=== PATIENT | female | born 1985 | race Caucasian/White ===

== ENCOUNTER 2019-07-28 17:35 | Emergency (ER) | payer OTHER, SELFPAY ==
[2019-07-28 17:36] VITALS: BP 115/71; PULSE 81; RESP 16; TEMP 37.3; O2SAT 99; BMI 27.6
--- NOTE | 2019-07-28 17:44 | US_ITS ---
STUDY: ABDOMINAL ULTRASOUND - RIGHT UPPER QUADRANT REASON FOR VISIT: Female, 33 years old RUQ PAIN- X 2 DAYS WORSE AFTER EATING TECHNIQUE: Ultrasound evaluation of the right upper quadrant was performed with real-time and static suazo-scale imaging. TECHNICAL QUALITY: Adequate. COMPARISON: 03/15/2012 FINDINGS: Pancreas: Visualized portions of pancreas are unremarkable. Liver: Measures 14.5 cm. Liver shows normal echogenicity. No masses identified. Gallbladder: Contracted. Negative sonographic Helm''s sign. Common bile duct: Measures 4 mm. No intraductal stones identified. Right kidney: Measures 11.6 cm in length. Normal contour. No cysts. No masses, stones, or hydronephrosis identified. Renal cortical thickness appears normal. Additional findings: None. US/Gallbladder IMPRESSION: Contracted gallbladder. Right upper quadrant abdominal ultrasound is within normal limits. Electronically Signed: Narendra Galvan, at 19:16 EST Tel , Service support ,
--- NOTE | 2019-07-28 17:48 | ED.VIS.GEN ---
History of Present Illness Chief Complaint: Abd Pain Informant: Patient Onset: Days Context: Gradual Onset Timing: Intermittent Current Severity: Moderate Maximum Severity: Moderate Narrative: The patient presents to the emergency department abdominal pain. She states that over the past few days, she has been having sharp pain in her midepigastric area that radiates to her right upper quadrant. It is worse with eating. She states that she gets nauseated but has had no vomiting. She does feel like she has had low-grade fever. The patient has had prior history of , but no other abdominal surgery. She does not recall any difference with different foods. She states that almost everything she eats to give her pain. She is otherwise been in her normal state of health. Prior similar symptoms: No Recent Illness/Hospitalization: No Past Medical History - Allergies and Home Meds Allergies/Adverse Reactions: Allergies amoxicillin Allergy (Verified 07/28/19 17:36) Rash Primary Care Physician: Elsy Crooks NP-C [Primary Care Provider] - Prior records reviewed: Yes Past Medical History: None Surgical History: - - Review of Systems General: Denies: Chills, Fever, Sweats Eyes: Denies: Visual changes - bilaterally, Diplopia ENT: Denies: Rhinorrhea, Sore throat Cardiovascular: Denies: Chest pain, Palpitations Respiratory: Denies: Dyspnea, Cough, Dyspnea on exertion Gastrointestinal: Reports: Abdominal pain, Nausea. Denies: Vomiting, Diarrhea, Melena, Hematochezia Genitourinary: Denies: Dysuria, Hematuria, Frequency Musculoskeletal: Denies: Back pain, Extremity Pain Skin: Denies: Rash, Wounds Neurological: Denies: Headache, Weakness, Numbness Physical Exam Vital Signs/Narrative: Vital Signs Temp Pulse Resp BP Pulse Ox 07/28/19 17:36 99.1 F 81 16 115/71 99 Inital Vital Signs reviewed: Yes General: Well nourished, Well developed, No Acute Distress Head: Normocephalic, Atraumatic Eyes: Perrl, EOMI ENT: Moist mucous membranes, No rhinorrhea Neck: Supple, Nontender Cardiovascular: Regular rate, Regular rhythm, No murmurs Respiratory: No distress, CTA bilaterally, Chest nontender Abdomen: Soft, Nondistended, Normal bowel sounds, Tender. Negative for: Guarding, Rebound tenderness Back: Nontender, Normal Inspection Extremities: Nontender, No edema Skin: Normal color, No rash Neurological: Alert, Oriented x3, Cranial nerves II-XII grossly intact, Normal Strength, Normal Sensation Psychological: Normal affect, Normal Mood Diagnostic/Tx/Re-eval Clinical Impression(s) from Imaging Studies Gallbladder Ultrasound 07/28/19 17:44 IMPRESSION: Contracted gallbladder. Right upper quadrant abdominal ultrasound is within normal limits. Electronically Signed: Narendra Galvan, at 19:16 EST Tel , Service support , Abnormal Lab Results 07/28/19 07/28/19 07/28/19 18:15 18:15 18:20 WBC 7.9 RBC 5.25 Hgb 13.2 Hct 42.2 MCV 80.4 L MCH 25.1 L MCHC 31.3 L RDW Std Deviation 41.4 RDW Coeff of Digna 14.3 Plt Count 340 MPV 10.2 Immature Gran % (Auto) 0.400 Neut % (Auto) 60.1 Lymph % (Auto) 29.1 [place] % (Auto) 8.9 Eos % (Auto) 1.0 Baso % (Auto) 0.5 Absolute Neuts (auto) 4.7 Absolute Lymphs (auto) 2.29 Nucleated RBC % 0 Sodium 140 Potassium 4.0 Chloride 108 H Carbon Dioxide 27.0 Anion Gap 5 BUN 12 Creatinine 0.89 Estim Creat Clear Calc 95.72 Est GFR (MDRD) Af Amer 95 Est GFR (MDRD) Non-Af 78 BUN/Creatinine Ratio 13.5 Glucose 86 Calcium 9.0 Total Bilirubin 0.30 Direct Bilirubin 0.13 AST 13 L ALT 29 Alkaline Phosphatase 89 Total Protein 7.6 Albumin 3.8 Globulin 3.8 Lipase 122 Urine Color Urine Clarity Urine pH Ur Specific [place] Urine Protein Urine Glucose (UA) Urine Ketones Urine Occult Blood Urine Nitrite Urine Bilirubin Urine Urobilinogen Ur Leukocyte Esterase Urine RBC Urine WBC Ur Squamous Epith Cells Urine Bacteria Urine Mucus Urine Yeast Urine Test Negative 07/28/19 18:20 WBC RBC Hgb Hct MCV MCH MCHC RDW Std Deviation RDW Coeff of Digna Plt Count MPV Immature Gran % (Auto) Neut % (Auto) Lymph % (Auto) [place] % (Auto) Eos % (Auto) Baso % (Auto) Absolute Neuts (auto) Absolute Lymphs (auto) Nucleated RBC % Sodium Potassium Chloride Carbon Dioxide Anion Gap BUN Creatinine Estim Creat Clear Calc Est GFR (MDRD) Af Amer Est GFR (MDRD) Non-Af BUN/Creatinine Ratio Glucose Calcium Total Bilirubin Direct Bilirubin AST ALT Alkaline Phosphatase Total Protein Albumin Globulin Lipase Urine Color Yellow Urine Clarity Clear Urine pH 6.5 Ur Specific [place] 1.015 Urine Protein Negative Urine Glucose (UA) Normal Urine Ketones Negative Urine Occult Blood Negative Urine Nitrite Negative Urine Bilirubin Negative Urine Urobilinogen Normal Ur Leukocyte Esterase 100 H Urine RBC 0-5 SEEN Urine WBC 0-5 SEEN Ur Squamous Epith Cells 5-10 SEEN Urine Bacteria 0 SEEN Urine Mucus RARE Urine Yeast 1+ Urine Test - Medical Decision Making The patient presents to the emergency department midepigastric pain in the right upper quadrant. It starts immediately after eating. She does not have a positive Helm sign. However, given her age I did want to rule out gallbladder pathology. IV was established. The patient is given fluids and Toradol. She did have significant improvement with Zofran for her nausea. Screening labs are unremarkable. Ultrasound shows no evidence of acute cholecystitis. My suspicion is that this is more likely gastritis as the patient has immediate pain after eating. I am going to place her on Pepcid, Bentyl, and Zofran. I do feel that she is safe for outpatient therapy and she is comfortable with this plan of care. Impression 1. Acute gastritis ED Disposition - Plan for ED Patient: Instructions: GASTRITIS vs. ULCER Prescriptions: Dicyclomine HCl [Bentyl] 20 mg PO TIDAC #20 cap Prescription Printed Famotidine [Pepcid] 20 mg PO BID #28 tab Prescription Printed Ondansetron [Zofran Odt] 4 mg PO Q8H PRN PRN #10 tab PRN Reason: Nausea Prescription Printed Referrals: Elsy Crooks, KIM-C [Primary Care Provider] -
[2019-07-28] MEDS: Ketorolac 30 MG/ML Syringe IV (18:21)
[2019-07-28] MEDS: Ondansetron 4 MG/2 ML Vial IV (18:22)
[2019-07-28] MEDS: 0.9% Normal Saline 1,000 ML 1000 ML IV (18:22)
[2019-07-28 18:30] LABS: Bacteria 0 SEEN /hpf (None Seen)
[2019-07-28 18:31] LABS: Absolute Lymphocyte Count 2.29 X10^3/uL (0.83-4.51); Absolute Neutrophil Count 4.7 X10^3/uL (2.0-7.7); Basophil# 0.04 X10^3/uL; Basophil% 0.5 % (0-1); Eosinophil# 0.08 X10^3/uL; Hematocrit 42.2 % (37-47); Hemoglobin 13.2 g/dL (12.0-15.0); Lymphocyte # 2.29 X10^3/ul (4.0); Lymphocyte % 29.1 % (19-41); Mean Corp Hgb Conc 31.3 g/dL (32-36); Mean Corpuscular Hgb 25.1 pg (27.0-32.0); Mean Corpuscular Volume 80.4 fL (81-99); Mean Platelet Vol. 10.2 fl (6.2-12.0); Monocyte% 8.9 % (0-10); NRBC Flagged by Analyzer 0 % (0-5); Neutrophil # 4.73 X10^3/uL (2.7-7.7); Neutrophil % 60.1 % (47-70); Platelet Count 340 K/mm3 (150-450); RBC Distribution Width CV 14.3 % (11.6-14.6); RBC Distribution Width SD 41.4 fl (35.1-43.9); Red Blood Count 5.25 M/mm3 (4.2-5.4); White Blood Count 7.9 K/mm3 (4.4-11.0)
[2019-07-28 18:32] LABS: Color, Urine Yellow (Yellow); Glucose, Dipstick Normal (Normal); Ketone-Dipstick Negative (Negative); Leukocyte Esterase-Dipstick 100 /ul (Negative); Nitrite-Dipstick Negative (Negative); Occult Blood-Urine Negative /ul (Negative); Protein-Dipstick Negative (Negative); Specific Gravity, Urine 1.015 (1.002-1.030); Urine Bilirubin Dipstick Negative (Negative); Urine Clarity Clear (Clear); Urine Urobilinogen Normal (Normal); Urine pH 6.5 (5.0 - 8.0)
[2019-07-28 18:36] VITALS: BP 115/71; PULSE 81; RESP 16; TEMP 37.3; O2SAT 99
[2019-07-28 18:41] LABS: Internal QC Validated? YES +Cl - CLEAR BKGD; Pregnancy, Urine Negative Negative
[2019-07-28 18:48] LABS: White Blood Cells 0-5 SEEN /hpf (0-5)
[2019-07-28 18:49] LABS: AST(SGOT) 13 U/L (15-37); Alanine Aminotransfer ALT/SGPT 29 U/L (13-56); Albumin, Serum 3.8 g/dL (3.2-5.0); Alkaline Phosphatase 89 U/L (45-117); Anion Gap 5 (5-15); BUN 12 mg/dL (7-18); BUN/Creat Ratio 13.5 RATIO (10-20); Bilirubin, Direct 0.13 mg/dL (0.00-0.30); Chloride 108 mmol/L (98-107); Creatinine, Serum 0.89 mg/dL (0.55-1.02); EST Glomerular Filtration Rate 78 mL/min (>60); Est Glom Filt Rate - Afr Amer 95 mL/min (>60); Estimated Creatinine Clearance 95.72 ml/min; Globulin 3.8 g/dL (2.2-4.2); Glucose 86 mg/dL (74-106); Lipase 122 U/L (73-393); Protein, Total 7.6 g/dL (6.4-8.2); Sodium Level 140 mmol/L (136-145)
[2019-07-28 18:49] LABS: Red Blood Cells-Urine 0-5 SEEN /hpf (0-5)
[2019-07-28 18:50] LABS: Squamous Epithelial Cells - UA 5-10 SEEN /hpf (5-10); Yeast-Urine 1+ /hpf (None Seen)
[2019-07-28 18:51] LABS: Mucous, Urine RARE /hpf (<or=2+)
[2019-07-28 19:34] VITALS: BP 119/76; PULSE 63; RESP 16; O2SAT 100
== END 2019-07-28 19:35 | disposition home or self-care (01) ==
LOC: ED 18:07
PROVIDERS: Emergency Provider Emergency Medicine; PCP Nurse Practitioner Family
DX: K29.00 Acute gastritis without bleeding (principal)
CPT/HCPCS: 76705; 80048; 80076; 81001; 81025; 83690; 85025; 96361; 96374; 96375; 99283; J7030; J2405

== ENCOUNTER 2022-04-21 10:10 | Outpatient (CLI) | payer OTHER, SELFPAY ==
--- NOTE | 2022-04-21 10:13 | US_ITS ---
STUDY: ULTRASOUND OF THE FEMALE PELVIS - COMPLETE REASON FOR EXAM: Female, 36 years old. AUB LMP: 04/14/2022. TECHNIQUE: Transabdominal and Transvaginal TECHNICAL QUALITY: Adequate. COMPARISON: Comparison is made with prior study dated 10/25/2014. FINDINGS: The uterus is anteverted and is in a midline position. The uterus measures 11.1 cm x 5.2 cm x 5.2 cm. There is a Nabothian cyst of the cervix. The endometrium measures 5.3 mm in thickness, and is hyperechoic. There is no demonstrated endometrial mass. There is no demonstrated myometrial mass. I.U.D. - The patient does not have an I.U.D. The right ovary is visualized. The right ovary measures 2.4 cm x 2 cm x 2 cm. There is no right ovarian cyst or ovarian mass. There is no visualized right adnexal mass or complex lesion. There is normal arterial and normal venous vascularity. The left ovary is visualized. The left ovary measures 4.3 cm x 3.4 cm x 2.8 cm. There is a 2.5 cm x 2.1 cm x 1.9 cm cyst in the left ovary. There is no visualized left adnexal mass or complex lesion. There is normal arterial and normal venous vascularity. There is no fluid in the cul-de-sac. The pre void volume of the bladder was 327 ml. US/Transvaginal Non- IMPRESSION: 2.5 cm x 2.1 cm x 1.9 cm cyst in the left ovary. Electronically Signed: Lalit Curry MD at 14:35 EST ,
--- NOTE | 2022-04-21 10:14 | US_ITS ---
STUDY: ULTRASOUND OF THE FEMALE PELVIS - COMPLETE REASON FOR EXAM: Female, 36 years old. AUB LMP: 04/14/2022. TECHNIQUE: Transabdominal and Transvaginal TECHNICAL QUALITY: Adequate. COMPARISON: Comparison is made with prior study dated 10/25/2014. FINDINGS: The uterus is anteverted and is in a midline position. The uterus measures 11.1 cm x 5.2 cm x 5.2 cm. There is a Nabothian cyst of the cervix. The endometrium measures 5.3 mm in thickness, and is hyperechoic. There is no demonstrated endometrial mass. There is no demonstrated myometrial mass. I.U.D. - The patient does not have an I.U.D. The right ovary is visualized. The right ovary measures 2.4 cm x 2 cm x 2 cm. There is no right ovarian cyst or ovarian mass. There is no visualized right adnexal mass or complex lesion. There is normal arterial and normal venous vascularity. The left ovary is visualized. The left ovary measures 4.3 cm x 3.4 cm x 2.8 cm. There is a 2.5 cm x 2.1 cm x 1.9 cm cyst in the left ovary. There is no visualized left adnexal mass or complex lesion. There is normal arterial and normal venous vascularity. There is no fluid in the cul-de-sac. The pre void volume of the bladder was 327 ml. US/Pelvic (Non ) IMPRESSION: 2.5 cm x 2.1 cm x 1.9 cm cyst in the left ovary. Electronically Signed: Lalit Curry MD at 14:35 EST ,
== END 2022-04-21 23:59 | disposition home or self-care (01) ==
PROVIDERS: PCP Nurse Practitioner Family; Visit Provider Obstetrics & Gynecology
DX: N93.9 Abnormal uterine and vaginal bleeding, unspecified (principal); N80.9 Endometriosis, unspecified; N92.1 Excessive and frequent menstruation with irregular cycle; E28.9 Ovarian dysfunction, unspecified
CPT/HCPCS: 76830; 76856

== ENCOUNTER → 2024-03-23 | Outpatient (CLI) | payer OTHER, SELFPAY ==
[2024-03-23 09:49] LABS: T4 Free Direct 0.96 ng/dL (0.76-1.46)
== END | disposition home or self-care (01) ==
LOC: LAB 08:37
PROVIDERS: PCP Nurse Practitioner Family; Referring Provider Advanced Practice Midwife; Visit Provider Advanced Practice Midwife
DX: N93.9 Abnormal uterine and vaginal bleeding, unspecified (principal)
CPT/HCPCS: 36415; 84439; 84443

== ENCOUNTER → 2024-03-24 | Outpatient (CLI) | payer OTHER, SELFPAY ==
[2024-03-30 10:09] LABS: HPV APTIMA, High Risk Negative (Negative)
== END | disposition home or self-care (01) ==
PROVIDERS: PCP Nurse Practitioner Family; Referring Provider Advanced Practice Midwife; Visit Provider Advanced Practice Midwife
DX: Z12.4 Encounter for screening for malignant neoplasm of cervix (principal)
CPT/HCPCS: 87624; 88175; G0145